=== PATIENT | female | born 1960 | race Caucasian/White ===

== ENCOUNTER 2024-12-23 09:24 | Emergency (ER) | payer BC, OTHER ==
[2024-12-23] MEDS ORDERED: IBUPROFEN 600 MG TABLET (FP) PO ONE (10:20)
[2024-12-23] MEDS: IBUPROFEN 600 MG TABLET (FP) PO ONE (10:22)
[2024-12-23 11:05] VITALS: BP 166/74; PULSE 79; RESP 18; TEMP 97.5; BMI 24.6
== END 2024-12-23 11:06 | disposition home or self-care (01) ==
LOC: FER 09:24
PROC: 2W38X1Z Immobilization of Right Upper Extremity using Splint (ICD-10-PCS; principal; 2024-12-23)
DX: S62.324A Displaced fracture of shaft of fourth metacarpal bone, right hand, initial encounter for closed fracture (principal); W01.0XXA Fall on same level from slipping, tripping and stumbling without subsequent striking against object, initial encounter
CPT/HCPCS: 70450-TC; 73110-TC-RT-FY; 73130-TC-RT-FY; 99284-25